=== PATIENT | female | born 1965 | race Asian ===

== ENCOUNTER → 2017-11-12 | Outpatient (CLI) | payer BC ==
[~2017-11-12] MED LIST: DILT240C93 PO; LOSA50TA37 PO
== END | disposition home or self-care (01) ==
LOC: RADPV 12:59
PROVIDERS: ATTEND Internal Medicine
DX: I70.0 Atherosclerosis of aorta (principal); J84.10 Pulmonary fibrosis, unspecified
CPT/HCPCS: 71046

== ENCOUNTER → 2017-11-14 | Outpatient (CLI) | payer BC | END | disposition home or self-care (01) | LOC: RADPV 13:30 | PROVIDERS: ATTEND Internal Medicine | DX: M79.622 Pain in left upper arm (principal); M79.89 Other specified soft tissue disorders | CPT/HCPCS: 76881 ==